=== PATIENT | male | born 1990 | race Caucasian/White ===

== ENCOUNTER 2017-02-19 18:38 | Emergency (ER) | payer SELFPAY ==
[~2017-02-19] VITALS: Ht 170.2 cm; Wt 88.0 kg
[~2017-02-19 18:38] MED LIST: CEPH500C3 PO; TYLE3 PO; Z.0.NO CURRENT MEDS
[2017-02-19 18:48] VITALS: BP 134/85; PULSE 89; RESP 16; TEMP 99.2; O2SAT 98
--- NOTE | 2017-02-19 18:57 | PD ---
HPI Chief Complaint: Musculoskeletal Complaint Time Seen by Provider: 18:54 Travel History International Travel<30 days: No Contact w/Intl Traveler<30days: No Traveled to known affect area: No History of Present Illness HPI 26 year old male with no medical history presents to the ED for evaluation of clicking of the left side of his jaw since eating toast last night. States that this is accompanied by pain. 4/10, exacerbated to a 6/10 with chewing. He took one ibuprofen 800mg for this and did not notice an improvement in his pain. Denies trauma. No recent illness, fever, or chills. No other symptoms to report. History Past Medical Histgory Medical History: Denies Significant Hx Social History Alcohol Use: No Tobacco Use: No Allergies-Medications (Allergen,Severity, Reaction): Coded Allergies: No Known Allergies (Verified , 02/19/17) Reported Meds & Prescriptions Reported Meds & Active Scripts Active Tylenol #3 (Acetaminophen/Codeine Phosphate) 300 Mg/30 Mg Tab 1 Tab PO Q6HPRN Keflex (Cephalexin Monohydrate) 500 Mg Cap 1 Tab PO QID Reported No Current Meds (Miscellaneous Medication) Misc Review of Systems Except as stated in HPI: all other systems reviewed are Neg Physical Exam Narrative GENERAL: Well nourished male pt in no acute distress SKIN: Warm and dry. HEAD: Normocephalic. No erythema or edema. No deformity. No tenderness to palpation along the mandible. Pt has intermittent clicking of the left TMJ. He can clench his teeth and fully open his mouth without difficulty. EYES: No scleral icterus. No injection or drainage. NECK: Supple, trachea midline. No JVD or lymphadenopathy. CARDIOVASCULAR: Regular rate and rhythm without murmurs, gallops, or rubs. RESPIRATORY: Breath sounds equal bilaterally. No accessory muscle use. MUSCULOSKELETAL: No cyanosis, or edema. BACK: Nontender without obvious deformity. No CVA tenderness. Data Data Last Documented VS Vital Signs Date Time Temp Pulse Resp B/P (MAP) Pulse Ox O2 Delivery O2 Flow Rate FiO2 02/19/17 18:48 99.2 89 16 134/85 (101) 98 MDM Medical Screen Exam Complete: Yes Emergency Medical Condition: No Differential Diagnosis L jaw pain; clicking. Possible TMJ syndrome Narrative Course 26 year old male with no significant medical history presents to the ED for evaluation of clicking of the mandible and TMJ pain since last evening eating toast. Physical exam is reassuring. There is no deformity. Pt can fully clench and open the mouth. No tenderness along the mandible to palpation. There is intermittent clicking at the left TMJ. I encouraged small bites, soft diet, no prolonged chewing and ibuprofen as directed for pain. He is also encouraged to seek dental evaluation. A medical screening exam was performed: At the time of evaluation the presenting medical condition was determined not to be of an emergent nature. The patient was given the option of receiving additional care, but declined. Patient was given options for additional community resources from which to obtain care. The Patient Has Been advised to seek medical attention for their presenting complaint. The patient has been advised to return to the ER at any time if an emergent condition develops. Primary Impression: Encounter for medical screening examination Condition: Merle Garduno Feb 19, 2017 18:57
== END 2017-02-19 19:03 | disposition left against medical advice (07) ==
LOC: PHEFT 18:38
DX: R68.84 Jaw pain (principal)
CPT/HCPCS: 99281